=== PATIENT | female | born 1985 | race Caucasian/White ===

== ENCOUNTER 2019-10-22 09:22 | Emergency (ER) | payer BC, SELFPAY ==
--- NOTE | ~2019-10-22 | XR_ITS ---
XR foot RT min 3V DATE: 10/22/2019 10:04 INDICATION: Hyperextension injury. Dorsal and generalized pain. TECHNIQUE: 4 views COMPARISON: None FINDINGS: No fracture or dislocation, periosteal reaction or bone destruction. Joint spaces are prese rved. IMPRESSION: No fracture or dislocation Reviewed, dictated and finalized at location A. IMPRESSION: No fracture or dislocation
--- NOTE | ~2019-10-22 | XR_ITS ---
XR knee RT 3V DATE: 10/22/2019 10:05 INDICATION: Injury, posterior pain TECHNIQUE: 4 views including crosstable lateral COMPARISON: None FINDINGS: No fracture or dislocation or joint effusion. No periosteal reaction or bone destruction. S light periarticular spurring of the patella. Joint spaces are preserved. No radiopaque intra-articula r loose body or chondrocalcinosis. IMPRESSION: Slight degenerative change Reviewed, dictated and finalized at location A. IMPRESSION: Slight degenerative change
--- NOTE | ~2019-10-22 | XR_ITS ---
XR tibia fibula RT 2V DATE: 10/22/2019 10:05 INDICATION: Injury, pain TECHNIQUE: AP and lateral views COMPARISON: None FINDINGS: No fracture or dislocation, periosteal reaction or bone destruction. IMPRESSION: Negative Reviewed, dictated and finalized at location A. IMPRESSION: Negative
--- NOTE | ~2019-10-22 | XR_ITS ---
XR ankle RT min 3V DATE: 10/22/2019 10:05 INDICATION: Hyperextension injury. Dorsal and generalized pain TECHNIQUE: 4 views COMPARISON: None FINDINGS: No fracture or dislocation of the ankle or disruption of the ankle mortise is detected. No periosteal reaction or bone destruction. IMPRESSION: No fracture or dislocation Reviewed, dictated and finalized at location A. IMPRESSION: No fracture or dislocation
[2019-10-22 09:31] VITALS: BP 131/75; PULSE 69; RESP 18; TEMP 36.7; O2SAT 100
--- NOTE | 2019-10-22 10:05 | ED.LOWEXIN ---
HPI - Extremity Injury (Lower) General Chief Complaint: Extremity Injury, Lower Stated Complaint: Foot and Knee pain Time Seen by Provider: 10/22/19 10:07 Source: patient History of Present Illness HPI Narrative: patient presents with right foot , ankle, knee and lower leg pain. no deformity, no open areas , no swelling. patient states she fell between her dresser ant the wall earlier today. hurts to walk on right side. Patient presents with right foot, right ankle and right lower leg contusion. Patient denies any head injuries denies any other injuries. Patient is not take anything for pain or discomfort. MD complaint: knee injury, leg injury, ankle injury and foot injury Injury: Right: knee, ankle and foot Type of Injury: blunt Place: home Severity: mild Severity scale (1-10): 1 Relieving factors: NSAID Exacerbating factors: nothing Context: fall (tripped) Associated symptoms: able to partially bear weight Other symptoms: none Related Data Home Medications Medication Instructions Recorded Confirmed No Home Medications 10/22/19 10/22/19 Allergies Allergy/AdvReac Type Severity Reaction Status Date / Time No Known Allergies Allergy Unknown Verified 10/22/19 09:47 Review of Systems Review of Systems: Narrative: CONSTITUTIONAL: Denies fever, chills, or sweats. EYES: Denies visual changes, redness, or discharge. ENT: Denies rhinorrhea, congestion, sore throat, or otalgia. CARDIOVASCULAR: Denies chest pain, palpitations, or edema. RESPIRATORY: Denies cough or dyspnea. GASTROINTESTINAL: Denies abdominal pain, nausea, vomiting, or diarrhea. GENITOURINARY: Denies dysuria or hematuria. SKIN: Denies rash or itching. MUSCULOSKELETAL: Denies back pain, joint pain, or myalgia. Right ankle lower leg and foot pain NEUROLOGIC: Denies headache, numbness, or weakness. PSYCHIATRIC: Denies anxiety or depression. All systems reviewed & are unremarkable except as noted in HPI and below Constitutional: Constitutional: Reports no additional constitutional complaints Eyes: Eyes: Reports no additional eye complaints ENT: Reports system reviewed and no additional complaints, except as documented Cardiovascular: Cardiovascular: Reports no additional cardiovascular complaints Respiratory: Respiratory: Reports no additional respiratory complaints Gastrointestinal: Gastrointestinal: Reports no additional gastrointestinal complaints Genitourinary: Genitourinary: Reports no additional female genitourinary complaints Musculoskeletal: Comments: right ankle, foot, knee and lower leg pain Integumentary/Breasts: Skin/Breast: Reports system reviewed and no additional complaints, except as docu Neurologic: Reports system reviewed and no additional complaints, except as documented Psychiatric: Psychiatric: Reports no additional psychiatric complaints Endocrine: Endocrine: Reports no additional endocrine complaints PMFSH Past Medical History Medical History (Updated 10/22/19 @ 10:43 by SAM Santiago) Bronchitis Sinusitis Surgical History Surgical History History of cholecystectomy Social History Social History (Updated 08/26/19 @ 15:14 by Nicole Cardona NP) Smoking status: Never smoker Gender identity (if verbalized by the patient): Female Comments At time of signature, agree with nursing past medical, surgical, social and family history. There is no relevant family history pertinent to the presenting complaint Exam Narrative: Exam Narrative: GENERAL: Well-appearing, well-nourished, and in no acute distress. HEAD: Normocephalic, atraumatic. EYES: PERRLA and EOMI. ENT: Nares clear, no rhinorrhea or epistaxis. Mucous membranes moist. NECK: Supple. CHEST: Clear to auscultation. No respiratory distress. HEART: Regular rate and rhythm. No murmur heard. Normal peripheral pulses. ABDOMEN: Soft, nontender, nondistended, normal active bowel sounds. EXTREMI
== END 2019-10-22 10:45 | disposition home or self-care (01) ==
PROVIDERS: Emergency Provider Nurse Practitioner Family; PCP Family Medicine
DX: S80.11XA Contusion of right lower leg, initial encounter (principal); S90.01XA Contusion of right ankle, initial encounter; S90.31XA Contusion of right foot, initial encounter; W19.XXXA Unspecified fall, initial encounter
CPT/HCPCS: 73562; 73590; 73610; 73630; 99214; G0463

== ENCOUNTER 2022-07-11 08:10 | Emergency (ER) | payer BC, SELFPAY ==
--- NOTE | ~2022-07-11 | XR_ITS ---
EXAMINATION: XR foot LT min 3V DATE: 07/11/2022 08:31 INDICATION: Left foot injury. TECHNIQUE: 4 views of left foot were obtained. COMPARISON: Left foot radiographs 02/11/2018 FINDINGS: Bone alignment is normal. No fracture. There is mild osteoarthritis of first metatarsophala ngeal joint, talonavicular joint, and some of the interphalangeal joints. There is an enthesophyte at plantar aspect of calcaneal tuberosity. IMPRESSION: 1. Mild polyarticular osteoarthritis. Reviewed, dictated and finalized at location A. [employer]
[2022-07-11 08:14] VITALS: BP 107/65; PULSE 56; RESP 20; TEMP 36.6; O2SAT 100
[2022-07-11 08:23] VITALS: BP 107/65; PULSE 56; RESP 20; TEMP 36.6; O2SAT 100
--- NOTE | 2022-07-11 08:30 | ED.LOWEXIN ---
HPI - Extremity Injury (Lower) General Chief Complaint: Extremity Injury, Lower Stated Complaint: Left Foot Injury Time Seen by Provider: 07/11/22 08:30 Source: patient and RN notes reviewed Mode of arrival: ambulatory Limitations: no limitations History of Present Illness HPI Narrative: 36-year-old female presents concern for injury to her left foot. Reports last night any frozen trunk of hamburger fell from the freezer on to her flight. She reports pain in the 1st toe that radiates up to the dorsal foot. She denies any open skin. She reports pain with walking. MD complaint: foot injury Related Data Home Medications Medication Instructions Recorded Confirmed No Home Medications 10/22/19 07/11/22 Allergies Allergy/AdvReac Type Severity Reaction Status Date / Time No Known Allergies Allergy Unknown Verified 07/11/22 08:21 Review of Systems Review of Systems: CONSTITUTIONAL: Denies malaise, chills, sweats, or fever. SKIN: Denies rash or itching, open skin, laceration, abrasion, redness, warmth MUSCULOSKELETAL: Reports left foot pain, swelling NEUROLOGIC: Denies numbness, weakness All systems reviewed & are unremarkable except as noted in HPI and below PMFSH Past Medical History Medical History (Updated 07/11/22 @ 08:42 by Adilene Story NP) Bronchitis Sinusitis Surgical History Surgical History History of cholecystectomy Social History Social History (Updated 08/26/19 @ 15:14 by Nicole Cardona NP) Smoking status: Never smoker Gender identity (if verbalized by the patient): Female Comments At time of signature, agree with nursing past medical, surgical, social and family history. There is no relevant family history pertinent to the presenting complaint Exam Narrative: GENERAL: Well-appearing, well-nourished, and in no acute distress. HEAD: Normocephalic, atraumatic. EYES: PERRLA, conjunctivae clear NECK: Supple. CHEST: Speaks in full sentences. No respiratory distress. HEART: Regular rate and rhythm. Normal and equal peripheral pulses. EXTREMITIES: Left foot and digits have grossly normal strength and sensation, grossly normal range of motion. Very mild 1st digit in dorsal edema she without erythema or ecchymosis. 5/5 strength with including digit flexion and extension. Normal sensation with sensitivity to light touch and pain. First digit tenderness. No open wounds, no skin tenting, no devitalized tissue or atrophy, no trophic changes, no obvious deformity, alignment normal, nearby joints and structures intact. Distal pulses palpable and equal bilaterally, skin warm, dry, pink. Capillary refill less than 3 seconds. SKIN: Warm, dry, no rash. Mild subungual hematoma noted the 1st digit of the left foot NEURO: Alert and oriented x3. PSYCH: Normal mood and affect Course Course Emergency Course: Patient is aware of diagnosis, understands and agrees to treatment plan. Anticipatory guidance given. Patient agrees to follow-up as directed and is aware of reasons to seek care at the emergency department. Portions of this record may have been created with voice recognition software Level of Care: Express Care Visit Vital Signs Vital signs: Vital Signs Temperature 97.8 F 07/11/22 08:14 Pulse Rate 56 L 07/11/22 08:14 Respiratory Rate 20 07/11/22 08:14 Blood Pressure 107/65 07/11/22 08:14 Pulse Oximetry 100 07/11/22 08:14 Oxygen Delivery Room Air 07/11/22 08:14 Temperature 97.8 F 07/11/22 08:23 Pulse Rate 56 L 07/11/22 08:23 Respiratory Rate 20 07/11/22 08:23 Blood Pressure 107/65 07/11/22 08:23 Pulse Oximetry 100 07/11/22 08:23 Oxygen Delivery Room Air 07/11/22 08:23 Reviewed. Procedures Nail Trephination Nail Trephination #1: Nail Trephination Date: 07/11/22 Nail Trephination Time: 08:39 Time out: Yes Location (toes): left Sterile prep: betadine
== END 2022-07-11 08:55 | disposition home or self-care (01) ==
PROVIDERS: Emergency Provider Nurse Practitioner; PCP Family Medicine
DX: S90.212A Contusion of left great toe with damage to nail, initial encounter (principal); S90.32XA Contusion of left foot, initial encounter; W20.8XXA Other cause of strike by thrown, projected or falling object, initial encounter
CPT/HCPCS: 11740; 73630; 99213; G0463

== ENCOUNTER 2023-04-19 08:01 | Emergency (ER) | payer BC, SELFPAY ==
[2023-04-19 08:07] VITALS: BP 113/60; PULSE 51; RESP 16; TEMP 36.6; O2SAT 100
--- NOTE | 2023-04-19 08:09 | ED.URI ---
HPI - URI/Sore Throat General Chief Complaint: Upper Respiratory Infection Stated Complaint: Sore Throat/Ear Pain/Cough Source: patient and RN notes reviewed History of Present Illness HPI Narrative: 37 yo F presents to urgent care with complaints of sore throat, bilateral ear pain, HORN, cough, chest pain with deep breathing, and congestion. Pt states she woke up this morning soaking wet with sweat. Pt's symptoms have been going on for 2 days. Denies any SOB, V/D, or abdominal pain. Pt has taken Excedrin at home with good relief. Pt has also taken 4 covid tests at home that were negative. Related Data Allergies Allergy/AdvReac Type Severity Reaction Status Date / Time No Known Allergies Allergy Unknown Verified 07/11/22 08:21 Review of Systems Review of Systems: Pertinent positives and pertinent negatives per HPI. [facility] Past Medical History Medical History (Updated 04/19/23 @ 08:18 by Milagros Kyle, KACY) Bronchitis Sinusitis Surgical History Surgical History History of cholecystectomy Social History Social History (Updated 08/26/19 @ 15:14 by Nicole Cardona NP) Smoking status: Never smoker Living arrangements: with family Gender identity (if verbalized by the patient): Female Comments At the time of my signature, I reviewed and agree with the nursing past medical, surgical, social, and family history. There is no relevant family history pertinent to the patient complaint. Exam Narrative: GENERAL: This is a well-nourished, well-developed patient, in no apparent distress. HEAD: normocephalic, atraumatic. EYES: Sclera clear/white. Vision is grossly intact. EARS: External ears normal, auditory canals clear and without drainage, TMs normal without perforation. Hearing grossly intact. NOSE: External nose normal with no obvious nasal discharge, nares without redness, no rhinorrhea. THROAT: Mucous membranes moist, posterior pharynx clear. NECK: Neck supple, non-tender without lymphadenopathy, masses or thyromegaly. CARDIOVASCULAR: Regular rate and rhythm without murmurs, gallops, or rubs. RESPIRATORY: Clear to auscultation. Breath sounds equal bilaterally. No wheezes, rales, or rhonchi. SKIN: warm, intact with no suspicious lesions or rash, good texture and turgor. NEURO: awake, alert, and oriented to person, place and time. There were no obvious focal neurologic abnormalities. Course Course Level of Care: Express Care Visit Vital Signs Vital signs: Vital Signs Temperature 98 F 04/19/23 08:07 Pulse Rate 51 L 04/19/23 08:07 Respiratory Rate 16 04/19/23 08:07 Blood Pressure 113/60 04/19/23 08:07 Pulse Oximetry 100 04/19/23 08:07 Oxygen Delivery Room Air 04/19/23 08:07 Temperature 98 F 04/19/23 08:12 Pulse Rate 51 L 04/19/23 08:12 Respiratory Rate 16 04/19/23 08:12 Blood Pressure 113/60 04/19/23 08:12 Pulse Oximetry 100 04/19/23 08:12 Oxygen Delivery Room Air 04/19/23 08:12 reviewed MDM - URI/Sore Throat MDM Narrative Medical decision making narrative: Viral illness may last between 7-21 days; antibiotics do not cure viral illness and are NOT recommended at this time. Also, recommend symptomatic treatment includes: rest, fluids, and increase humidity of the air at home. Recommend Acetaminophen as directed on the bottle to reduce fever, pain, headache. Please schedule a follow-up visit with your personal physician for further evaluation and treatment within 3-5days. If your symptoms persist, change or worsen significantly before you can contact your personal physician then please, without delay, go to the emergency department for further evaluation. Rapid strep is negative in the office; however we will send to the lab for confirmation; there is a small percentage chance that it can come back positive; if it is, we will call you in 2-3days; and your prescription will be call in to your pharm
[2023-04-19 08:12] VITALS: BP 113/60; PULSE 51; RESP 16; TEMP 36.6; O2SAT 100
== END 2023-04-19 08:40 | disposition home or self-care (01) ==
PROVIDERS: Emergency Provider Nurse Practitioner Family; PCP Family Medicine
DX: B34.9 Viral infection, unspecified (principal)
CPT/HCPCS: 87081; 87880; 99213; G0463

== ENCOUNTER 2023-07-06 15:46 | Emergency (ER) | payer BC, SELFPAY ==
[2023-07-06 15:52] VITALS: BP 107/56; PULSE 56; RESP 14; TEMP 36.6; O2SAT 99
--- NOTE | 2023-07-06 16:21 | ED.GENADULT ---
HPI - General Adult General Chief complaint: Upper Respiratory Infection Stated complaint: sore throat Time Seen by Provider: 07/06/23 16:21 Source: patient, RN notes reviewed and old records reviewed Mode of arrival: ambulatory Limitations: no limitations History of Present Illness HPI narrative: 37-year-old female presents to [facility] with complaints of sore throat, ear pain since Sunday with cough and expectoration of greenish tinged mucous. Patient reports that she had to call off work on Sunday due to illness. 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 Patient reports no known fevers chills or sweats or any body aches or headache pain. MD complaint: Sore throat Onset (ago): day(s) (4) Severity scale (1-10): 6 Quality: aching and dull Treatments prior to arrival: other (cough drops) Related Data Allergies Allergy/AdvReac Type Severity Reaction Status Date / Time No Known Allergies Allergy Unknown Verified 07/06/23 16:09 Review of Systems Review of Systems: CONSTITUTIONAL: reports malaise, no chills, sweats, or fever. EYES: Denies visual changes, redness, or discharge. ENT: Reports rhinorrhea, congestion, sinus pain, otalgia and sore throat. CARDIOVASCULAR: Denies chest pain, palpitations, or edema. RESPIRATORY: Reports cough.? Denies dyspnea. GASTROINTESTINAL: Denies abdominal pain, nausea, vomiting, diarrhea SKIN: Denies rash or itching. MUSCULOSKELETAL: Denies myalgia. NEUROLOGIC: Denies headache. All systems reviewed & are unremarkable except as noted in HPI and below PMFSH Past Medical History Medical History (Updated 07/07/23 @ 22:07 by Nicole Cardona NP) Bronchitis Sinusitis Surgical History Surgical History (Updated 07/07/23 @ 22:07 by Nicole Cardona NP) H/O gastric sleeve History of cholecystectomy Social History Social History (Updated 08/26/19 @ 15:14 by Nicole Cardona NP) Smoking status: Never smoker Living arrangements: with family Gender identity (if verbalized by the patient): Female Comments At time of signature, agree with nursing past medical, surgical, social and family history. There is no relevant family history pertinent to the presenting complaint Exam Narrative: GENERAL: Well-appearing, well-nourished, and in no acute distress. HEAD: Normocephalic EYES: PERRLA, conjunctivae clear ENT: Nares clear, turbinates edematous and erythematous, clear discharge. Mucous membranes moist. TM pearly alston with dull light reflex bilaterally; no tragal tenderness. Oropharynx erythematous without lesions. Tonsils enlarged and without exudate, no drooling, no hoarseness, no trismus, uvula midline. NECK: Supple. No lymphadenopathy CHEST: Clear to auscultation, breath sounds equal. No wheezing, rhonchi, rales, or stridor. No respiratory distress, speaks in full sentences.cough productive, SAO2 99% on room air HEART: Regular rate and rhythm. No murmur heard. SKIN: Warm, dry, no rash. NEURO: Alert and oriented x3. PSYCH: Normal mood and affect Course Course Emergency Course: Patient is aware of diagnosis, understands and agrees to treatment plan.? Anticipatory guidance given.? Patient agrees to follow-up as directed and is aware of reasons to seek care at the emergency department. Portions of this record may have been created with voice recognition software Level of Care: Express Care Visit Vital Signs Vital signs: Vital Signs Temperature 36.6 C 07/06/23 15:52 Pulse Rate 56 L 07/06/23 15:52 Respiratory Rate 14 07/06/23 15:52 Blood Pressure 107/56 L 07/06/23 15:52 Pulse Oximetry 99 07/06/23 15:52 Oxygen Delivery Room Air 07/06/23 15:52 Temperature 36.6 C 07/06/23 15:52 Pulse Rate 56 L 07/06/23 15:52 Respiratory Rate 14 07/06/23 15:52 Blood Pressure 107/56 L 07/06/23 15:52 Pulse Oximetry 99 07/06/23 15:52 Oxygen Delivery Room Air 07/06/23 15:52
== END 2023-07-06 16:45 | disposition home or self-care (01) ==
PROVIDERS: Emergency Provider Registered Nurse; PCP Family Medicine
DX: J06.9 Acute upper respiratory infection, unspecified (principal); J02.9 Acute pharyngitis, unspecified; Z98.84 Bariatric surgery status
CPT/HCPCS: 87081; 87880; 99213; G0463

== ENCOUNTER 2023-11-13 07:50 | Emergency (ER) | payer BC, SELFPAY ==
--- NOTE | ~2023-11-13 | CT_ITS ---
Non-contrast CT scan of the Abdomen and Pelvis Clinical indication: Abdominal pain Technique: 2.5 mm axial scans were obtained through the abdomen and pelvis without intravenous or or al contrast. Dose reduction technique was used on this scan by utilizing automated exposure control a nd iterative reconstruction technique. The dose-length product (DLP) was 958.45 mGy-cm. Findings: Images through the lung bases reveal no abnormalities. There is no evidence of renal or ureteral calculi. The kidneys and the ureters are nondilated. The liver, spleen, pancreas, and adrenals appear normal. Cholecystectomy clips are present. There is no aortic aneurysm. There is no evidence of bowel obstruction. Evidence of probable prior bariatric surgery. Normal appen esthela. Images through the pelvis were performed. There is no evidence of ascites or lymphadenopathy. Urinary bladder unremarkable. No pelvic mass evident. Bilateral L5 pars interarticularis defects are present , with minimal grade 1 anterolisthesis of L5 over S1. Impression: No acute abnormality. Bilateral L5 pars articularis defects, with minimal grade 1 anterolisthesis of L5 over S1. Reviewed, dictated and finalized at [facility]. Impression: No acute abnormality. Bilateral L5 pars articularis defects, with minimal grade 1 anterolisthesis of L5 over S1.
[2023-11-13 07:57] VITALS: BP 112/63; PULSE 58; RESP 16; TEMP 36.6; O2SAT 99
--- NOTE | 2023-11-13 08:07 | ED.ABDPAIN ---
HPI - Abdominal Pain General Chief Complaint: Abdominal Pain Stated Complaint: abd pain x 1 week Time Seen by Provider: 11/13/23 08:02 Source: patient and family Mode of arrival: ambulatory Limitations: no limitations History of Present Illness HPI narrative: 38 years old white female came to the emergency room by private car from home complaining of right mid abdominal pain started 6 days ago associated with nausea and watery diarrhea up to 3 times a day. She denies any fever, chills, vomiting. Three days ago patient noted that her stool is black. She denies radiation of pain, history of gastric sleeve 2020, cholecystectomy, last menstrual period 7 days ago. Last episode of diarrhea was yesterday afternoon. Related Data Allergies Allergy/AdvReac Type Severity Reaction Status Date / Time No Known Allergies Allergy Unknown Verified 11/13/23 08:01 Review of Systems Review of Systems: All systems reviewed & are unremarkable except as noted in HPI and below PMFSH Past Medical History Medical History Bronchitis Sinusitis Surgical History Surgical History H/O gastric sleeve History of cholecystectomy Social History Social History Smoking status: Never smoker Living arrangements: with family Gender identity (if verbalized by the patient): Female Exam Narrative: General appearance: Well-developed, well-nourished Skin: Normal color Head: Normocephalic, nontraumatic Eyes: Clear conjunctiva ENT: Oropharynx normal, ears normal, nose normal Neck: Supple, nontender Chest and respiratory: Airway patent, no respiratory distress, no accessory muscle use Heart: Regular rate/rhythm Abdomen: Soft, nontender, no organomegaly, quiet bowel sounds Vascular: Normal peripheral pulses, normal capillary refill. Musculoskeletal: Normal range of motion, nontender back Neurologic: Alert and oriented ?3, ELECT[employer]MENT INST[employer]ER is normal as tested, no gross motor deficit Course Vital Signs Vital signs: Vital Signs Temperature 36.6 C 11/13/23 07:57 Pulse Rate 58 L 11/13/23 07:57 Respiratory Rate 16 11/13/23 07:57 Blood Pressure 112/63 11/13/23 07:57 Pulse Oximetry 99 11/13/23 07:57 Temperature 36.6 C 11/13/23 07:57 Pulse Rate 58 L 11/13/23 07:57 Respiratory Rate 16 11/13/23 07:57 Blood Pressure 112/63 11/13/23 07:57 Pulse Oximetry 99 11/13/23 07:57 MDM - Abdominal Pain MDM Narrative Medical decision making narrative: Patient came with a right mid abdominal pain and the diarrhea up to 3 times a day for the last 6 days Differential diagnosis viral gastroenteritis, dehydration, electrolyte imbalance, colitis, Blood workup today showed potassium 3.3, CT abdomen and pelvis with IV contrast showed no significant abnormalities. In the ED patient received 2 L of normal saline, 4 mg of morphine, 4 mg of Zofran, 40 mEq of potassium chloride p.o. with significant improvement Last episode of diarrhea yesterday afternoon. Patient unable to provide a stool sample in the ED prior to discharge the pt was discharged to home.the pt,s condition upon discharge was fair,education was provided to the pt in reference to the final impression,discharge study results,treatment,prognosis and need for follow up . Differential Diagnosis Differential diagnosis: Likely other (As above) Medical Records Attestation: I reviewed the patient's medical records. Lab Data Attestation: I reviewed the patient's lab results. 11/13/23 08:13 11/13/23 08:13 Labs: Lab Results 0
[2023-11-13] MEDS: SODIUM CHLORIDE 0.9% IV 2,000 ML 999 ML IV CONT (08:22)
[2023-11-13 08:23] LABS: Basophils Percent Auto 0.5 % (0.2-1.2); Eosinophils Absolute Auto 0.2 K/mm3 (0-0.3); Eosinophils Percent Auto 3.3 % (0-4.4); Hematocrit 39.4 % (37.0-47.0); Hemoglobin 12.4 g/dL (12.0-15.0); Immature Granulocyte Absolute 0.02 K/mm3 (0.00-0.031); Immature Granulocyte Percent A 0.3 % (0-0.5); Lymphocytes Absolute Auto 1.48 K/mm3 (0.9-3.2); Lymphocytes Percent Auto 25.6 % (18.3-44.2); Mean Corpuscular HGB Conc 31.5 g/dl (32-36); Mean Corpuscular Volume 85.8 fl (80-100); Mean Platelet Volume 9.3 fl (7.4-10.4); Monocytes Absolute Auto 0.6 K/mm3 (0.1-0.6); Monocytes Percent Auto 9.9 % (2.6-8.5); Neutrophils Absolute Auto 3.5 K/mm3 (1.3-6.7); Neutrophils Percent Auto 60.4 % (45.5-73.1); Platelet Count Result 404 k/mm3 (150-375); Red Blood Count 4.59 M/mm3 (4.2-5.4); Red Cell Distribution Width 14.2 % (11.5-14.5); White Blood Count 5.8 K/mm3 (4.5-10.0)
[2023-11-13] MEDS: MORPHINE SULFATE (*CRX) 4 MG/ML INJ IV PUSH (08:23)
[2023-11-13] MEDS: ONDANSETRON INJ 4 MG/2 ML VIAL IV PUSH (08:23)
[2023-11-13 08:38] LABS: Alanine Aminotransferase 17 U/L (6-35); Albumin Level 4.1 g/dL (3.5-5.1); Alkaline Phosphatase 75 U/L (38-126); Anion Gap 4 mmol/L (4-12); Aspartate Amino Transferase 18 U/L (14-36); Bilirubin,Total 0.6 mg/dL (0.2-1.3); Blood Urea Nitrogen 14 mg/dL (7-17); Carbon Dioxide 30 mmol/L (22-30); Chloride 103 mmol/L (98-107); Estimated CRCL calculation 109 ml/min; Estimated Glomerular Filt Rate > 60; Glucose 91 mg/dL (65-110); Lipase 85 U/L (23-300); Potassium 3.3 mmol/L (3.4-5.0); Sodium 137 mmol/L (137-145)
[2023-11-13 08:47] LABS: Appearance Urine Cloudy (Clear); Bacteria Urine 4+ /hpf; Bilirubin Urine 1+ (Negative); Blood Urine Negative (Negative); Calcium Oxalate Crystals Urine Present /hpf; Color Urine Dark Yellow (Yellow); Glucose Urine UA Negative (Negative); Ketones Urine 1+ mg/dL (Negative); Leukocyte Esterase Ur Trace LEU/UL (Negative); Mucus Urine Present /lpf; Nitrate Urine Negative (Negative); Protein Urine Trace mg/dL (Negative); Squamous Epithelial Cell Urine Moderate /hpf (Few); pH Urine 5.5 (5.0-9.0)
[2023-11-13 08:48] LABS: Non Pathogenic Casts Not Present; Specific Grav Ur 1.038 (1.001-1.035)
[2023-11-13 08:53] LABS: Add Urine Microscopic? YES
[2023-11-13] MEDS: POTASSIUM CHLORIDE 20 MEQ ER TABLET 40 MEQ PO (09:59)
== END 2023-11-13 10:15 | disposition home or self-care (01) ==
PROVIDERS: Emergency Provider Emergency Medicine; PCP Family Medicine
DX: R10.9 Unspecified abdominal pain (principal); R19.7 Diarrhea, unspecified; E87.6 Hypokalemia
CPT/HCPCS: 36415; 74176; 80053; 81001; 81025; 83690; 85025; 87086; 87088; 96361; 96374; 96375; 99284; A9270; J2270; J2405; J7030

== ENCOUNTER 2024-03-14 10:37 | Emergency (ER) | payer BC, SELFPAY ==
--- NOTE | ~2024-03-14 | XR_ITS ---
EXAMINATION: XR wrist RT min 3V DATE: 03/14/2024 11:16 INDICATION: Right wrist pain. TECHNIQUE: 4 views of right wrist were obtained. COMPARISON: None. FINDINGS: Bone alignment is normal. No fracture. Joint spaces are normal. IMPRESSION: 1. No fracture. Reviewed, dictated and finalized at location A. IMPRESSION: 1. No fracture.
[2024-03-14 10:43] VITALS: BP 101/62; PULSE 49; RESP 16; TEMP 36.8; O2SAT 100
--- NOTE | 2024-03-14 10:58 | ED.GENADULT ---
HPI - General Adult General Chief complaint: Extremity Injury, Upper Stated complaint: Right Wrist Injury Time Seen by Provider: 03/14/24 10:55 Source: patient, RN notes reviewed and old records reviewed Mode of arrival: ambulatory Limitations: no limitations History of Present Illness HPI narrative: 38 year old female who presents to [facility] care with complaints of pain to her right thumb base to her right wrist for the past 2 weeks with no known injury. Patient reports that she has janessa diagnosed with tendonitis to her wrist in the past and had steroid injection in her wrist which she reports didn't seem to help. Patient reports that dog does pull on leash when she walks the dog. Patient reports no tingling or numbness to her right hand with strong radial pulse to right wrist note and brisk capillary refill of nail beds. MD complaint: right wrist pain base of thumb to wrist Onset (ago): week(s) (2) Location: right and upper extremity (wrist) Severity scale (1-10): 7 Quality: burning and aching Treatments prior to arrival: cold therapy and splint Related Data Allergies Allergy/AdvReac Type Severity Reaction Status Date / Time No Known Allergies Allergy Unknown Verified 03/14/24 10:43 Review of Systems Review of Systems: CONSTITUTIONAL: Denies fever, chills, or sweats. EYES: Denies visual changes, redness, or discharge. ENT: Denies rhinorrhea, congestion, sore throat, or otalgia. CARDIOVASCULAR: Denies chest pain, palpitations, or edema. RESPIRATORY: Denies cough or dyspnea. GASTROINTESTINAL: Denies abdominal pain, nausea, vomiting, or diarrhea. GENITOURINARY: Denies dysuria or hematuria. SKIN: Denies rash or itching. MUSCULOSKELETAL: Denies back pain,pain to the right base of thumb to right wrist for the past 2 weeks, or myalgia. NEUROLOGIC: Denies headache, numbness, or weakness. PSYCHIATRIC: Denies anxiety or depression. All systems reviewed & are unremarkable except as noted in HPI and below PMFSH Past Medical History Medical History (Updated 03/14/24 @ 12:22 by Nicole Cardona NP) Bronchitis Sinusitis Tendonitis Surgical History Surgical History H/O gastric sleeve History of cholecystectomy Social History Social History Smoking status: Never smoker Living arrangements: with family Gender identity (if verbalized by the patient): Female Comments At time of signature, agree with nursing past medical, surgical, social and family history. There is no relevant family history pertinent to the presenting complaint Exam Narrative: GENERAL: Well-appearing, well-nourished, and in no acute distress. HEAD: Normocephalic, atraumatic. EYES: PERRLA and EOMI. ENT: Nares clear, no rhinorrhea or epistaxis. Mucous membranes moist. NECK: Supple.no lymphadenopathy CHEST: Clear to auscultation. No respiratory distress.SAO2 100% on room air HEART: Regular rate and rhythm. No murmur heard. Normal peripheral pulses. ABDOMEN: Soft, nontender, nondistended, normal active bowel sounds. EXTREMITIES: Normal range of motion. No edema.Reports pain to the base of her right thumb into the radial aspect of her right wrist. Patient has full mobility of her right wrist but with some discomfort. Patient has been wearing a soft brace and also has been using a firmer brace to her right wrist. SKIN: Warm, dry, no rash. NEURO: No focal deficits. Alert and oriented x3. Course Course Emergency Course: Patient is aware of diagnosis, understands and agrees to treatment plan.? Anticipatory guidance given.? Patient agrees to follow-up as directed and is aware of reasons to seek care at the emergency department. Portions of this record may have been created with voice recognition software Level of Care: Express Care Visit Vital Signs Vital signs: Vital Signs Temperature 36.8 C 03/14/24 10:43 Pulse Rate 49 L 03/14/24
== END 2024-03-14 11:41 | disposition home or self-care (01) ==
PROVIDERS: Emergency Provider Registered Nurse; PCP Family Medicine
DX: M77.8 Other enthesopathies, not elsewhere classified (principal); Z98.84 Bariatric surgery status
CPT/HCPCS: 73110; 99213; G0463

== ENCOUNTER 2025-03-03 08:17 | Outpatient (CLI) | payer BC, SELFPAY ==
--- OUTSIDE RECORDS SUMMARY | 2025-03-03 08:20 | XMS_ITS | Clinical Summary ---
Author Organization [facility] Building [address] Address [address] [place] [address] Care Team Providers Care Director Of Collections And Archives Name Role Phone Hola Garcia MD Primary Care Provider [phone] Cesario Tinsley MD Unavailable [phone] Allergies Active Allergy Reactions Criticality Noted Date Comments Nsaids (Non-Steroidal Anti-Inflammatory Drug) Other (See comments) Low 12/27/2023 Unable to take due to previous gastric sleeve surgery Medications cyanocobalamin, vitamin B-12, 500 mcg tablet,disintegrati ngIndications:Preve ntion of Vitamin B12 Deficiency Place 500 mcg under the tongue daily 30 each 5 1 Active omeprazole (PriLOSEC) 20 mg capsule Take 1 capsule (20 mg total) by mouth as needed Active cholecalciferol (Vitamin D3) 1,000 unit capsule Take 1 capsule (1,000 Units total) by mouth daily Active magnesium gluconate 200 mg tabletIndications:h ypomagnesemia 1 tablet (200 mg total) Active ondansetron ODT (ZOFRAN-ODT) 4 mg disintegrating tabletIndications:C lass 2 obesity due to excess calories without serious comorbidity with body mass index (BMI) of 38.0 to 38.9 in adult Take 1 tablet (4 mg total) by mouth every 8 (eight) hours as needed for nausea 20 tablet 6 5 Active tirzepatide, weight loss, (Zepbound) 5 mg/0.5 mL pen injectorIndications :Weight Loss Management for Obese Patient (BMI >= 30) Inject 0.5 mL (5 mg total) under the skin every 7 days 2 mL 2 5 Active Active Problems Problem Noted Date Diagnosed Date De Quervain's tenosynovitis 07/03/2024 Pre-operative clearance 07/01/2024 Assessment & Plan (07/01/2024 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 Lewis. Planning for right 1st dorsal compartment release on 07/28. Denies any history of complication with anesthesia. Denies COPD/asthma, CLIFFORD, DVT/PE. Unable to take NSAIDs secondary to bariatric surgery status. Past medical history significant for gastric sleeve, endometrial ablation and GERD. Nonsmoker. Labs ordered today. EKG completed in office. Class 2 obesity due to exces s calories without serious comorbidity with body mass index (BMI) of 35.0 to 35.9 in adult 07/01/2024 Vagina bleeding 11/01/2023 Annual physical exam 10/25/2023 Assessment & Plan (10/30/2024 2:33 PM CDT): Visit preventive in nature. We reviewed medications, chronic conditions, risk factors, lifestyle recommendations. Reviewed immunization recommendations. Follow-up in 6 months for chronic conditions and 1 year for annual wellness. Assessment & Plan (10/25/2023 4:43 PM CDT): Reviewed lifestyle recommendations today reviewed screening recommendations. Will order screening labs today. Follow-up in 1 year for annual wellness and sooner for any concerns. Acute strain of neck muscle 10/25/2023 Assessment & Plan (10/25/2023 4:44 PM CDT): Neurovascularly intact. Will initiate Flexeril p.r.n.. Reviewed stretching exercises. Recommend ice, heat. Will monitor response. S/P gastric sleeve procedure 10/25/2023 Assessment & Plan (10/30/2024 2:35 PM CDT): Encourage vitamin supplements. Continues following with bariatric specialist. Assessment & Plan (10/25/2023 4:44 PM CDT): Has lost significant amount of weight. Symptoms likely consistent with hypoglycemic episodes. Encouraged to eat small frequent meals. Also recommend obtaining glucometer to check blood sugar at those times. We reviewed red flags. Will monitor response. Pharyngitis 08/02/2023 Upper respiratory infection 08/02/2023 Viral infection 08/02/2023 At high risk for breast cancer 03/13/2023 History of sleeve gastrectomy 01/04/2023 Chronic constipation 11/15/2022 Rectal pain 11/15/2022 Closed fracture of nasal bones 11/07/2022 Facial laceration 11/07/2022 Right corneal abrasion 11/07/2022 Nutritional counseling 01/13/2021 Anxiety 01/13/2021 Assessment & Plan (10/30/2024 2:34 PM CDT): See plan as above. Major depressive disorder, r ecurrent episode, in full remission 12/15/2020 Assessment & Plan (10/30/2024 2:33 PM CDT): Currently stable. Red flags reviewed. Will place referral to specialist. Will continue to follow. Class 3 severe obesity due t o excess calories without serious comorbidity with body mass index (BMI) of 50.0 to 59.9 in adult 03/20/2018 Assessment & Plan (03/20/2018 11:12 AM CDT): Obesity is unchanged. Discussed the patient's BMI. The BMI is above average; BMI management plan is completed. General weight loss/lifestyle modification strategies discussed (elicit support from others; identify saboteurs; non-food rewards, etc). Family history of malignant neoplasm of breast 0 03/20/2018 Assessment & Plan (10/25/2023 4:43 PM CDT): Follows closely with breast specialist. Having MRI q.6 months. Was told by specialist she has 20% chance of developing breast cancer. Family history of multiple myeloma 03/20/2018 Resolved Problems Problem Noted Date Diagnosed Date Resolved Date Morbid obesity 12/14/2020 01/04/2023 Overview (12/14/2020): Added automatically from request for surgery [id number] Encounters Date Type Department Care Team Description 01/23/2025 3:30 PM CDT Office Visit [facility] Minimally Invasive Surgery [address] [place] [address] Medical Office Building [address] [place] [id number] Uma Vieyra NP Obesity, Class II, BMI 35-39.9 (Primary Dx); Morbid obesity (HCC); Weight loss counseling, encounter for; Class 2 obesity due to excess calories without serious comorbidity with body mass index (BMI) of 38.0 to 38.9 in adult; H/O gastric sleeve; Intestinal malabsorption, unspecified type from Last 3 Months Immunizations Immunization Administration Dates Next Due Influenza, Quadrivalent, Spl it, Preservative Free, Intramuscular 05/14/2019,06/11/2018 Influenza, Unspecified 07/01/2024(Deferr ed: Patient Refused),10/25/2023(Deferred: Patient Refused),05/13/2023(Deferred: Patient Refused),09/27/2022(Deferred: Patient Refused),05/13/2022(Deferred: Patient Refused),04/13/2022(Deferred: Patient Refused),06/02/2021(Deferred: Patient Refused),2020(Deferred: Patient Refused),05/17/2020(Deferred: Patient Refused) Pfizer SARS-CoV-2 Monovalent Vaccination (12+ Yrs) PURPLE 02/07/2021,01/17/2021 Tdap 11/07/2022,03/20/2018,09/12/2014 Surgical History Surgery Date Site/Laterality Comments COLONOSCOPY 2012 - 08/12/2013 LAPAROSCOPIC CHOLECYSTECTOMY 2009 - 08/12/2010 BARIATRIC SURGERY 02/23/2021 COLONOSCOPY 2022 - 08/12/2023 ENDOMETRIAL ABLATION 12/27/2023 uterine ablation Medical History Medical History Date Comments BRCA2 negative BRCA1 negative Asthma Not sure Morbid obesity (HCC) 11/04/2020 Anxiety and depression Family History Medical History Relation Name Comments Breast cancer Mother Mother Cancer Mother Mother Learning disabilities Mother Mother Multiple myeloma Mother Mother Breast cancer Mother's Sister abad Diabetes Other 2 Family history of Diabetes mellitus; Cancer Other 3 Family history of Cancer, unknown; Heart disease Other 4 Family history of Heart problems; Heart disease Paternal Grandmother Juanita Zhong Anesthesia problems Neg Hx Endometrial cancer Neg Hx Ovarian cancer Neg Hx Thyroid cancer Neg Hx Relation Name Status Comments Mother Mother Mother's Sister abad Alive Other 1 Other 2 Other 3 Other 4 Paternal Grandmother Juanita Zhong Social History Tobacco Use Types Packs/Day Years Used Date Smoking Tobacco: Never Smokeless Tobacco: Never Tobacco Cessation:Counseling Given: Not Answered AUDIT-C Answer Date Recorded Q1: How often do you have a drink containing alcohol? Never 11/14/2024 Q2: How many drinks containi ng alcohol do you have on a typical day when you are drinking? Patient does not drink Q3: How often do you have si x or more drinks on one occasion? Never 11/14/2024 PHQ-2 Answer Date Recorded PHQ-2 Total Score (If total score is 3 or more points, staff should administer the PHQ-9) 3 10/27/2024 PHQ-9 Answer Date Recorded PHQ-9 Total Score 18 10/27/2024 Personal Safety Answer Date Recorded Have you ever been in or are you currently in a harmful physical or emotional relationship or is someone making you feel afraid or unsafe? 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 Gender Identity Female 01/26/2020 4:31 PM CDT Sexual Orientation Straight 01/26/2020 4: 31 PM CDT Obstetrics History Para Term AB IAB SAB Ectopic Multiple Livin g Live Births 3 3 3 Date Outcome GA Total Labor Labor/2nd/3rd Weight Sex Type Anes PTL Dolly A1 A5 Name Clin Term Term Term Last Filed Vital Signs Vital Sign Reading Time Taken Comments Blood Pressure 114/76 01/23/2025 3:00 PM CDT Pulse 62 01/23/2025 3:00 PM CDT Temperature 36.2 C (97.2 F) 10/27/2024 3:54 PM CDT Respiratory Rate 20 10/27/2024 3:54 PM CDT Oxygen Saturation 98% 01/23/2025 3:00 PM CDT Inhaled Oxygen Concentration - - Weight 95.7 kg (211 lb) 01/23/2025 3:00 PM CDT Height 165.1 cm (5' 5) 01/23/2025 3:00 PM CDT Body Mass Index 35.11 01/23/2025 3:00 PM CDT Plan of Treatment Health Maintenance Due Date Last Done Comments Hepatitis C Screening 1987 Hepatitis B Screening 2005 Cervical Cancer Screening 10/11/2017 10/11/2016 Covid-19 Vaccine ( season) 2024 02/07/2021, 01/17/2021 Breast Cancer Screening-Mammogram 03/03/2025 03/03/2024, 03/02/2023, 03/01/2023, Additional history exists Influenza Vaccine (#1) 2025 05/14/2019, 2017 Depression Screening 10/27/2025 10/27/2024, 10/27/2024, 07/01/2024, Additional history exists Regular Well Visit/Exam 18-64 10/27/2025 10/27/2024, 10/25/2023, 06/02/2021, Additional history exists DTaP/Tdap/Td Vaccine (4 - Td or Tdap) 11/07/2032 11/07/2022, 03/20/2018, 09/12/2014 HPV Vaccines Aged Out No longer eligi ble based on patient's age to complete this topic Pneumococcal vaccine <65 Aged Out No longer eligible based on patient's age to complete this topic Varicella Vaccines Discontinued Procedures Procedure Name Priority Date/Time Associated Diagnosis Comments SCREENING MAMMOGRAM BILATERAL W STORM Schedule Routine, Read Routine (OP Routine) 03/03/2024 9:12 AM CDT Family history of malignant neoplasm of breast HM PAP SMEAR WITH HPV Routine 10/11/2016 from Last 3 Months or Most Recently Relevant to Health Maintenance Results * Screening Mammogram Bilateral W Storm (03/03/2024 9:12 AM CDT) Anatomical Region Laterality Modality Breast Bilateral Mammography Narrative 03/04/2024 3:23 PM CDT Mammogram Technique: Bilateral Digital Breast Tomosynthesis, Bilateral C-view 2D Screening mammogram. Views obtained: bilateral craniocaudal and bilateral mediolateral oblique. Computer Aided Detection was performed. Mammogram Findings: The present examination has been compared to prior imaging studies performed on 09/29/2019, 11/06/2020, 03/25/2021, 02/14/2022 and 03/01/2023. The breasts are heterogeneously dense, which may obscure small masses. There is no suspicious abnormality in either breast. There are no significant changes from the prior study. Impression: There is no mammographic evidence of malignancy. Note patient is due in one month for follow breast MRI for probably benign findings seen on prior breast MRI from 10/01/2023. Please refer to that report for further details. Annual screening mammography is recommended. If supplemental screening is desired, breast MRI would be recommended in this patient with heterogeneously dense breasts. OVERALL FINAL ASSESSMENT: BI-RADS CATEGORY 1: Negative. Procedure Note Gabriela Chamorro MD - 03/04/2024 Mammogram Technique: Bilateral Digital Breast Tomosynthesis, Bilateral C-view 2D Screening mammogram. Views obtained: bilateral craniocaudal and bilateral mediolateral oblique. Computer Aided Detection was performed. Mammogram Findings: The present examination has been compared to prior imaging studies performed on 09/29/2019, 11/06/2020, 03/25/2021, 02/14/2022 and03/01/2023. The breasts are heterogeneously dense, which may obscure small masses. There is no suspicious abnormality in either breast. There are no significant changes from the prior study. Impression: There is no mammographic evidence of malignancy. Note patient is due in one month for follow breast MRI for probablybenign findings seen on prior breast MRI from 10/01/2023. Please refer to that report for further details. Annual screening mammography is recommended. If supplemental screeningis desired, breast MRI would be recommended in this patient with heterogeneously dense breasts. OVERALL FINAL ASSESSMENT: BI-RADS CATEGORY 1: Negative. us Lexis Hopkins NP IMG MAMMO PROCEDURES Final Result * PAP SMEAR WITH HPV (10/11/2016) Pap smear Normal Historical Provider HEALTH MAINTENANCE Final Result from Last 3 Months or Most Recently Relevant to Health Maintenance Insurance [employer] [place] [employer] [place] BLUE ACCESS CHOICE ME Advance Directives For more information, please contact: [phone] * Full Code (Latest Code Status on File) Date Activated Date Inactivated Comments 12/20/2022 10:23 AM 12/20/2022 7:01 PM * Full Code Date Activated Date Inactivated Comments 12/20/2022 10:23 AM 12/20/2022 10:23 AM * Full Code Date Activated Date Inactivated Comments 02/23/2021 5:41 PM 02/25/2021 5:05 PM Care Teams Director Of Collections And Archives Relationship Specialty Start Date End Date Hola Garcia MD [address] [place] [address] [place] [address] PCP - General Family Medicine 09/03/19 Cesario Tinsley MD [address] [place] [address] DR CH[address] B [address] [address] Software Intern Obstetrics and Gynecology 12/27/23
--- OUTSIDE RECORDS SUMMARY | 2025-03-03 08:20 | XMS_ITS | Referral Summary ---
Author Organization [facility] Medical Office Building B Address [address] [place] [address] Care Team Providers Care Mechanical Test Technician Name Role Phone Hola Garcia MD Primary Care Provider [phone] Cesario Tinsley MD Unavailable Encounters Date Type Department Care Team Description 01/23/2025 3:30 PM CDT Office Visit [facility] Minimally In[facility] Medical Office Building [address] [place] [phone] Uma Vieyra NP Obesity, Class II, BMI 35-39.9 (Primary Dx); Morbid obesity (HCC); Weight loss counseling, encounter for; Class 2 obesity due to excess calories without serious comorbidity with body mass index (BMI) of 38.0 to 38.9 in adult; H/O gastric sleeve; Intestinal malabsorption, unspecified type from Last 3 Months Allergies Active Allergy Reactions Criticality Noted Date [...] 07/01/2024 Assessment & Plan (07/01/2024 7:36 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): No contraindication to upcoming surgery on right [...] (12/14/2020): Added automatically from request for surgery [id number] Immunizations Immunization Administration Dates Next Due Influenza, Quadrivalent, Spl it, Preservative Free, Intramuscular 05/14/2019,06/11/2018 Influenza, Unspecified 07/01/2024(Deferr ed: Patient Refused),10/25/2023(Deferred: Patient Refused),05/13/2023(Deferred: Patient Refused),09/27/2022(Deferred: Patient Refused),05/13/2022(Deferred: Patient Refused),04/13/2022(Deferred: Patient Refused),06/02/2021(Deferred: Patient Refused),2020(Deferred: Patient Refused),05/17/2020(Deferred: Patient Refused) Pfizer SARS-CoV-2 Monovalent Vaccination (12+ Yrs) PURPLE 02/07/2021,01/17/2021 Tdap 11/07/2022,03/20/2018,09/12/2014 Social History Tobacco Use Types Packs/Day Years [...] on file Legal Sex Female 5:52 PM 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 KNITTER Gender Identity Female 01/26/2020 4:31 PM CDT Sexual Orientation Straight 01/26/2020 4: 31 PM CDT Last Filed Vital Signs Vital Sign Reading [...] 01/23/2025 3:00 PM CDT Plan of Treatment Not on file Procedures Procedure Name Priority Date/Time Associated Diagnosis [...] NP IMG MAMMO PROCEDURES Final Result * HM PAP SMEAR WITH HPV (10/11/2016) Pap smear Normal us Historical Provider HEALTH MAINTENANCE Final Result from Last 3 Months or Most Recently Relevant to Health Maintenance Insurance [employer] CHO[employer] [place] [employer] [place] BLUE ACCESS CHOICE ME Advance Directives For more information, please contact: [phone] * Full Code (Latest Code Status on File) Date Activated Date Inactivated Comments 12/20/2022 10:23 AM 12/20/2022 7:01 PM * Full Code Date Activated Date Inactivated Comments 12/20/2022 10:23 AM 12/20/2022 10:23 AM * Full Code Date Activated Date Inactivated Comments 02/23/2021 5:41 PM 02/25/2021 5:05 PM Care Teams Mechanical Test Technician Relationship Specialty Start Date End Date Hola Garcia MD [address] [place] [address] PCP - General Family Medicine 09/03/19 Cesario Tinsley MD [address] [place] [address] [address] B [address] [address] [employer]ba Business Development Officer Obstetrics and Gynecology 12/27/23
--- OUTSIDE RECORDS SUMMARY | 2025-03-03 08:20 | XMS_ITS | Data Portability ---
Author Organization [facility] Address [address] [place] [address] Assessment No assessment recorded. Plan of Treatment Reminders Order Date Submit Date Provider Last Modified By Organization Details Last Modified Time Details Appointments None record ed. Lab biopsy , endome trial 2023 024 [email or web address] [facility], [address] [facility], [place], [address], 4 09:48:19 pregna ncy test, urine 2023 024 [email or web address] In-Office Order, Internal Use Only DO Not Attach Compendium DO Not Attach Compendium, Do Not Delete/merge, [id number] 12:31:07 pregna ncy test, urine 2022 023 [email or web address] In-Office Order, Internal Use Only DO Not Attach Compendium DO Not Attach Compendium, Do Not Delete/merge, [id number] 17:03:13 biopsy , endome trial 2022 023 [email or web address] [facility], [address] [facility], [place], [address], 3 17:03:13 Referral None record ed. Procedures None record ed. Surgeries hyster oscopy , with endome trial ablati on (SURG) 2022 024 [facility], [address] [facility] , [place], [address], 16:51:30 Imaging None record ed. Medication Orders None record ed. Patient TargetsNo targets recorded. Patient Instructions Encounter Date Encounter Id Patient Instructions Last Modified By Organization Details Last Modified Time 11/26/2023 [id number] A healthy lifestyle: care instructions Not available 12/05/2023 21:29:42 01/09/2024 [id number] A healthy lifestyle: care instructions Not available 01/09/2024 18:04:00 02/11/2025 [id number] A healthy lifestyle: care instructions Not available 02/11/2025 14:44:17 Reason for Referral None Reported. Results Created Date Observation Date Name Description Value Unit Range Abnormal Flag Note LastModifiedBy Organization Detail LastModifiedTime 02/23/2002/22/2023 CBC WITH DIFFE RENTI AL/PL ATELE T WBC 7.7 K/uL 3.4-10 .8 Not Available [facility] [address] [place], [address], 02/23/2023 07:15:55 02/23/2002/22/2023 CBC WITH DIFFE RENTI AL/PL ATELE T RBC 4.3 M/uL 4.2-5. 4 Not Available [facility] [address] [place], [address], 02/23/2023 07:15:55 02/23/2002/22/2023 CBC WITH DIFFE RENTI AL/PL ATELE T hemoglobin 12.1 g/dL 11.5-1 5.5 Not Available [facility] [address] [place], [address], 02/23/2023 07:15:55 02/23/2002/22/2023 CBC WITH DIFFE RENTI AL/PL ATELE T hematocrit 38.0 % 36.0-4 8.0 Not Available [facility] [address] [place], [address], 02/23/2023 07:15:55 02/23/2002/22/2023 CBC WITH DIFFE RENTI AL/PL ATELE T MCV 89 fL 80-95 Not Available [facility] [address] [place], [address], 02/23/2023 07:15:55 02/23/2002/22/2023 CBC WITH DIFFE RENTI AL/PL ATELE T MCH 28 pg 27-32 Not Available [facility] [address] [place], [address], 02/23/2023 07:15:55 02/23/2002/22/2023 CBC WITH DIFFE RENTI AL/PL ATELE T MCHC 32 g/dL 32-36 Not Available [facility] [address] [place], [address], 02/23/2023 07:15:55 02/23/2002/22/2023 CBC WITH DIFFE RENTI AL/PL ATELE T RDW 13.2 % 11.5-1 4.5 Not Available [facility] [address] [place], [address], 02/23/2023 07:15:55 02/23/2002/22/2023 CBC WITH DIFFE RENTI AL/PL ATELE T platelets 353 K/uL 155-37 9 MPV 10.1 FL 8.9-1 2.7 N Not Available [facility] [address] [place], [address], 02/23/2023 07:15:55 02/23/2002/22/2023 CBC WITH DIFFE RENTI AL/PL ATELE T neutrophils 61.4 % 40.0-7 4.0 Not Available [facility] [address] [place], [address], 02/23/2023 07:15:55 02/23/2002/22/2023 CBC WITH DIFFE RENTI AL/PL ATELE T lymphs 23.1 % 14.0-4 6.0 Not Available [facility] [address] [place], [address], 02/23/2023 07:15:55 02/23/2002/22/2023 CBC WITH DIFFE RENTI AL/PL ATELE T monocytes 7.8 % 4.0-12 .0 Not Available [facility] [address] [place], [address], 02/23/2023 07:15:55 02/23/2002/22/2023 CBC WITH DIFFE RENTI AL/PL ATELE T eos 6 % 0-5 above high normal Not Available [facility] [address] [place], [address], 02/23/2023 07:15:55 02/23/2002/22/2023 CBC WITH DIFFE RENTI AL/PL ATELE T basos 0.8 % 0.0-1. 0 Not Available [facility] [address] [place], [address], 02/23/2023 07:15:55 02/23/20 23 02/22/2023 CBC WITH DIFFE RENTI AL/PL ATELE T neutrophils (absolute) 4.7 K/uL 1.4-7. 0 Not Available [facility] [address] [place], [address], 02/23/2023 07:15:55 02/23/20 23 02/22/2023 CBC WITH DIFFE RENTI AL/PL ATELE T lymphs (absolute) 1.8 K/uL 0.7-3. 1 Not Available [facility] [address] [place], [address], 02/23/2023 07:15:55 02/23/2002/22/2023 CBC WITH DIFFE RENTI AL/PL ATELE T monocytes(ab solute) 0.6 K/uL 0.1-0. 9 Not Available [facility] [address] [place], [address], 02/23/2023 07:15:55 02/23/20 23 02/22/2023 CBC WITH DIFFE RENTI AL/PL ATELE T eos (absolute) 0.4 K/uL 0.0-0. 4 Not Available [facility] [address] [place], [address], 02/23/2023 07:15:55 02/23/20 23 02/22/2023 CBC WITH DIFFE RENTI AL/PL ATELE T baso (absolute) 0.1 K/uL 0.0-0. 3 Not Available [facility] [address] [place], [address], 02/23/2023 07:15:55 02/23/20 23 02/22/2023 CBC WITH DIFFE RENTI AL/PL ATELE T immature granulocytes 1.2 % Not Available [facility] [address] [place], [address], 02/23/2023 07:15:55 02/23/20 23 02/22/2023 CBC WITH DIFFE RENTI AL/PL ATELE T immature grans (abs) 0.1 K/uL Not Available [facility] [address] [place], [address], 02/23/2023 07:15:55 02/23/20 23 02/22/2023 CBC WITH DIFFE RENTI AL/PL ATELE T NRBC 0 % Not Available [facility] [address] [place], [address], 02/23/2023 07:15:55 02/23/20 23 02/24/2023 IGP, APTIM A HPV, RFX 16/18 ,45 HPV aptima Negati ve negati ve This nucle ic acid ampli ficat ion test detec ts fourt een high- risk HPV types (16,1 8,31, 33,35 ,39,4 5,51, 52,56 ,58,5 9,66, 68) witho ut diffe renti ation . Not Available [facility] ([facility]) [address] [facility], [place], [address], 02/26/2023 11:15:03 02/23/20 23 02/26/2023 IGP, APTIM A HPV, RFX 16/18 ,45 diagnosis: Jb ALCANTARAT GODFREY FOR INTRA EPITH ELIAL ELIZABETHIO N OR VITA MASTERS . Not Available [facility] ([facility]) [address] [facility], [place], [address], 02/26/2023 11:15:03 02/23/20 23 02/26/2023 IGP, APTIM A HPV, RFX 16/18 ,45 specimen adequacy: Jb monreal Satis facto ry for evalu ation . Endoc ervic al and/o r squam ous metap lasti c cells (endo cervi evangelina compo nent) are prese nt. Not Available [facility] ([facility]) [address] [facility], [place], [address], 02/26/2023 11:15:03 02/23/20 23 02/26/2023 IGP, APTIM A HPV, RFX 16/18 ,45 clinician provided ICD10: Jb monreal Z87.4 2 Not Available [facility] ([facility]) [address] [facility], [place], [address], 02/26/2023 11:15:03 02/23/20 23 02/26/2023 IGP, APTIM A HPV, RFX 16/18 ,45 performed by: Lea Lewis (ASCP ) Not Available [facility] ([facility]) [address] [place], [address], 02/26/2023 11:15:03 02/23/20 23 02/26/2023 IGP, APTIM A HPV, RFX 16/18 ,45 . . Not Available [facility] ([facility]) [address] [place], [address], 02/26/2023 11:15:03 02/23/20 23 02/26/2023 IGP, APTIM A HPV, RFX 16/18 ,45 note: Commen t The Pap smear is a scree ronald test desig jamel to aid in the detec tion of gregoria ligna nt and malig nant condi tions of the uteri ne cervi x. It is not a diagn ostic proce dure and shoul d not be used as the sole means of detec ting cervi evangelina cance r. Both false -posi tive and false -nega tive repor ts do occur . Not Available [facility] ([facility]) [address] [place], [address], 02/26/2023 11:15:03 02/23/20 23 02/26/2023 IGP, APTIM A HPV, RFX 16/18 ,45 test methodology: Commen t This liqui d based ThinP rep(R ) pap test was scree jamel with the use of an image guide d systkaroline m. Not Available [facility] ([facility]) [address] [place], [address], 02/26/2023 11:15:03 02/23/20 23 02/26/2023 IGP, APTIM A HPV, RFX 16/18 ,45 HPV genotype reflex Commen t Crite elvis not met, HPV Genot ype not perfo rmed. Not Available [facility] ([facility]) [address] [place], [address], 02/26/2023 11:15:03 02/23/2002/23/2023 TSH+F REE T4 TSH 1.380 uIU/m L 0.450- 4.500 Not Available [facility] ([facility]) [address] [place], [address], 02/23/2023 11:17:23 07/02/23/2023 TSH+F REE T4 T4,free(dire ct) 1.13 NG/dL 0.82-1 .77 Not Available [facility] ([facility]) [address] [place], [address], 02/23/2023 11:17:23 03/13/20 23 03/21/2023 PATHO LOGY REPOR T . Commen t Mater ial submi tted: . endom etriu m - ENDOM ETRIA L BIOPS Y Not Available [facility] ([facility]) [address] [place], [address], 03/21/2023 11:17:03 03/13/2003/21/2023 PATHO LOGY REPOR T . Commgillian t Diagn osis: ENDOM ETRIA L BIOPS Y: MINUT E STRIP S OF NARDA Prieto SURFA CE ENDOM ETRIA L EPITH ELIUM WILLIAM NT FOR RELIA BLE ENDOM ETRIA L DIAGN OSIS. POLYP OID FRAGM ENTS OF NARDA Prieto ENDOC ERVIC AL TISSU E. COMME NT: CLINI EVANGELINA VICTOR MANUEL TAVAREZ N IS [facility] 03/21 0822 Local Not Available [facility] ([facility]) [address] [place], [address], 03/21/2023 11:17:03 03/13/2003/21/2023 PATHO LOGY REPOR T . Commen t Arlin barroso d: . Bay Beltran MD, Patho logis t Not Available [facility] ([facility]) [address] [facility], [place], [address], 03/21/2023 11:17:03 03/13/20 23 03/21/2023 PATHO LOGY REPOR T . Commen t Gross descr iptio n: . 1 Conta iner, forma abelardo-f illed , label ed with patie nt ident ifica tion. ENDOM ETRIA L BIOPS Y: MULTI PLE FRAGM ENT(S ) OF SOFT MATER IAL, BLOOD , AND MUCUS MEASU RING 3.0 X 2.0 X 0.1 CM IN AGGRE GATE. FILTE RED AND SUBMI TTED IN CASSE TTE(S ) A1. EL/D RA 03/15 0026 Local Not Available [facility] ([facility]) [address] [facility], [place], [address], 03/21/2023 11:17:03 03/13/20 23 03/21/2023 PATHO LOGY REPOR T . Commen t CPT . [id number] 1 Not Available [facility] ([facility]) [address] [facility], [place], [address], 03/21/2023 11:17:03 03/13/20 23 03/13/2023 pregn tanmay test, urine HCG negati ve Not Available In-Office Order Internal Use Only DO Not Attach Compendium DO Not Attach Compendium, Do Not Delete/merge, [id number] 03/13/2023 16:03:24 11/26/19 24 11/28/2023 PATHO LOGY REPOR T . Commen t Mater ial submi tted: . endom etriu m - ENDOM ETRIA L BIOPS Y Not Available [facility] ([facility]) [address] [facility], [place], [address], 11/28/2023 11:22:50 11/26/19 24 11/28/2023 PATHO LOGY REPOR T . Commen t Clini ian provi ded ICD-1 0: N93.9 Not Available [facility] ([facility]) [address] [facility], [place], [address], 11/28/2023 11:22:50 11/26/19 24 11/28/2023 PATHO LOGY REPOR T . Commen t Diagn osis: ENDOM ETRIA L BIOPS Y: SECRE TORY ENDOM ETRIU M. NO HYPER PLASI A OR CARCI NOMA. GXA 11/27 1015 Local Not Available [facility] ([facility]) [address] [facility], [place], [address], 11/28/2023 11:22:50 11/26/19 24 11/28/2023 PATHO LOGY REPOR T . Commen t Arlin barroso d: . Niels kelly MD, Patho logis t Not Available [facility] ([facility]) [address] [facility], [place], [address], 11/28/2023 11:22:50 11/26/19 24 11/28/2023 PATHO LOGY REPOR T . Commen t Gross descr iptio n: . 1 Conta iner, forma abelardo-f illed , label ed with patie nt ident ifica tion. ENDOM ETRIA L BIOPS Y: MULTI PLE FRAGM ENT(S ) OF SOFT MATER IAL, BLOOD , AND MUCUS MEASU RING 3.0 X 1.2 X 0.3 CM IN AGGRE GATE. FILTE RED AND SUBMI TTED IN CASSE TTE(S ) A1. MARIO/K YE 11/26 0801 Local Not Available [facility] ([facility]) [address] [facility], [place], [address], 11/28/2023 11:22:50 11/26/19 24 11/28/2023 PATHO LOGY REPOR T . Commen t Patho logis t provi ded ICD-1 0: N93.8 Not Available [facility] ([facility]) [address] [facility], [place], [address], 11/28/2023 11:22:50 11/26/19 24 11/28/2023 PATHO LOGY REPOR T . Commen t CPT . [id number] Not Available [facility] ([facility]) [address] [facility], [place], [address], 11/28/2023 11:22:50 11/26/19 24 11/26/2023 pregn tanmay test, urine HCG negati ve Not Available In-Office Order Internal Use Only DO Not Attach Compendium DO Not Attach Compendium, Do Not Delete/merge, [id number] 11/26/2023 16:38:25 03/01/20 23 03/01/2023 US, pelvi s, trans abdom inal + trans vagin al No observ ation record ed. [facility] [address] [facility] [place], [address], 03/12/2023 12:06:59 03/02/20 23 03/01/2023 MAMMO , scree ronald, tomos ynthe sis, bilat eral No observ ation record ed. [facility] Scheduling [address] [facility] [place], [address], 03/12/2023 11:59:24 Result Notes None recorded. Problems No Known Problems Procedures Surgical History Date Name Laterality Status Provider Name and Address Organization Details Recorded Time 02/02/20 25 Date of Last Pap Smear completed Melissa Kaur [facility] 02/11/2025 14:05:11 07/13/20 24 arthroplasty of joint of the thumb completed Melissa Kaur [facility] 02/11/2025 14:07:17 12/27/19 24 Endometrial Ablation completed Sondra Phan RN [facility] 12/27/2023 16:41:14 12/27/19 24 HYSTEROSCOPY, WITH ENDOMETRIAL ABLATION (SURG) completed Not Available [facility] 12/27/2023 16:51:30 11/26/19 24 Endometrial Biopsy completed Cesario Tinsley MD Attn: Accounting,[address] [facility], [place], [address], [facility] 12/05/2023 21:28:28 03/13/20 23 Endometrial Biopsy completed RAND Childs Attn: Accounting,[address] [facility], [place], [address], [facility] 03/13/2023 17:01:17 03/01/20 23 Most Recent Mammogram completed Genet Cazares [facility] 11/23/2023 08:53:53 12/21/19 23 colonoscopy completed IRINA Hernandez [facility] 02/22/2023 14:08:10 02/24/20 21 laparoscopic sleeve gastrectomy completed IRINA Hernandez [facility] 03/14/2021 12:06:04 04/01/20 10 Cholecystectomy completed Rocio Hill [facility] 07/07/2014 15:29:31 Imaging Results None recorded. Procedure Notes None recorded. Medical Equipment None Reported. Allergies No known drug allergies Medications Name Sig Start Date Stop Date Status Note LastModified by Organization Details LastModified Time cyclobenzap rine 10 mg tablet TAKE 1 TABLET BY MOUTH THREE TIMES A DAY NEEDED FOR MUSCLE SPASMS 02/11 completed Not Available Not Available Not Available amoxicillin 500 mg capsule TAKE ONE CAPSULE BY MOUTH TWICE DAILY FOR 10 DAYS 02/22 completed Not Available Not Available Not Available prednisone 10 mg tablet 03/17 completed Not Available Not Available Not Available albuterol sulfate 2.5 mg/3 mL (0.083 %) solution for nebulizatio n 02/22 completed Not Available Not Available Not Available loperamide 2 mg capsule PLEASE SEE ATTACHED FOR DETAILED DIRECTION S 02/11 completed Not Available Not Available Not Available polyethylen e glycol 3350 17 gram oral powder packet TAKE 1 PACKET (17 G TOTAL) BY MOUTH DAILY 02/22 completed Not Available Not Available Not Available azithromyci n 250 mg tablet TAKE 2 TABLETS BY MOUTH TODAY, THEN TAKE 1 TABLET DAILY FOR 4 DAYS 02/22 completed Not Available Not Available Not Available benzonatate 200 mg capsule 02/22 completed Not Available Not Available Not Available hydrocodone 5 mg-acetamin ophen 325 mg tablet 02/11 completed Not Available Not Available Not Available ondansetron HCl 4 mg tablet TAKE ONE TABLET BY MOUTH EVERY 6 HOURS NEEDED FOR NAUSEA/VO MITING 02/22 completed Not Available Not Available Not Available prednisone 20 mg tablet TAKE 1 TABLET BY MOUTH TWICE A DAY 02/11 completed Not Available Not Available Not Available phentermine 15 mg capsule TAKE 1 CAPSULE BY MOUTH EVERY DAY IN THE MORNING 02/22 completed Not Available Not Available Not Available promethazin e 6.25 mg-codeine 10 mg/5 mL syrup 02/22 completed Not Available Not Available Not Available acetaminoph en 300 mg-codeine 30 mg tablet TAKE 1 TAB BY MOUTH EVERY 6 HOURS NEEDED FOR PAIN TAKE DIRECTED WITH FOOD. 02/22 completed Not Available Not Available Not Available tramadol 50 mg tablet active Not Available Not Available No t Available amoxicillin 500 mg tablet TAKE 1 TABLET BY MOUTH EVERY 8 HOURS UNTIL GONE 02/11 completed Not Available Not Available Not Available amoxicillin 875 mg tablet TAKE ONE TABLET BY MOUTH EVERY 12 HOURS 11/25 completed Not Available Not Available Not Available amoxicillin 250 mg/5 mL oral suspension active Not Available Not Available N ot Available Mapap (acetaminop hen) 500 mg capsule TAKE 2 CAPSULES BY MOUTH 8 HOURS FOR 13 DOSES 02/22 completed Not Available Not Available Not Available cephalexin 500 mg capsule TAKE 1 CAPSULE EVERY 12 HOURS BY ORAL ROUTE FOR 10 DAYS. 02/22 completed Not Available Not Available Not Available ferrous sulfate 325 mg (65 mg iron) tablet TAKE 1 TABLET BY MOUTH EVERY DAY WITH BREAKFAST 02/22 completed Not Available Not Available Not Available neomycin-po lymyxin-dex ameth 3.5 mg/mL-10,00 0 unit/mL-0.1 % eye drops ADMINISTE R 1 DROP INTO THE RIGHT EYE 4 (FOUR) TIMES A DAY 02/22 completed Not Available Not Available Not Available prednisone 50 mg tablet TAKE 1 TABLET BY MOUTH DAILY FOR 5 DAYS 11/25 completed Not Available Not Available Not Available hyoscyamine 0.125 mg sublingual tablet TAKE ONE TABLET BY MOUTH EVERY 6 HOURS FOR 17 DOSES 02/22 completed Not Available Not Available Not Available docusate sodium 100 mg capsule TAKE 1 CAPSULE TWICE DAILY FOR CONSTIPAT ION MANAGEMEN T. CONSIDER TAKING WITH FOOD TO AVOID NAUSEA. 02/22 completed Not Available Not Available Not Available amoxicillin 250 mg capsule TAKE 1 CAPSULE BY MOUTH EVERY 8 HOURS UNTIL GONE 02/22 completed Not Available Not Available Not Available ergocalcife rol (vitamin D2) 1,250 mcg (50,000 unit) capsule TAKE 1 CAPSULE BY MOUTH ONE TIME PER WEEK 02/22 completed Not Available Not Available Not Available scopolamine 1 mg over [address] 1 PATCH ON THE SKIN ONCE FOR [address] BEHIND EAR AT 8PM THE NIGHT PRIOR TO SURGERY 02/22 completed Not Available Not Available Not Available methylpredn isolone 4 mg tablets in a dose pack TAKE DIRECTED ON PACKAGE 02/11 completed Not Available Not Available Not Available ondansetron 4 mg disintegrat ing tablet DISSOLVE 1 TABLET IN MOUTH EVERY 8 HOURS NEEDED FOR NAUSEA 02/11 completed Not Available Not Available Not Available cefdinir 300 mg capsule TAKE 1 CAPSULE BY MOUTH TWICE A DAY FOR 7 DAYS 02/22 completed Not Available Not Available Not Available diazepam 5 mg tablet TAKE 1 TABLET BY MOUTH BEFORE LEAVING HOUSE FOR MRI AND TAKE 1 TABLET AFTER ARRIVING 02/11 completed Not Available Not Available Not Available amoxicillin 875 mg-potassiu m clavulanate 125 mg tablet 03/17 completed Not Available Not Available Not Available Ventolin HFA 90 mcg/actuati on aerosol inhaler 02/22 completed Not Available Not Available Not Available oxycodone 5 mg tablet TAKE 1 TABLET (5 MG TOTAL) BY MOUTH EVERY 4 (FOUR) HOURS NEEDED FOR PAIN 02/22 completed Not Available Not Available Not Available azithromyci n 500 mg tablet TAKE 1 TABLET BY MOUTH EVERY DAY FOR 5 DAYS 11/25 completed Not Available Not Available Not Available Klor-Con M20 mEq tablet,exte nded release TAKE 1 TABLET BY MOUTH TWICE DAILY 11/25 completed Not Available Not Available Not Available Flovent HFA 110 mcg/actuati on aerosol inhaler 02/22 completed Not Available Not Available Not Available aprepitant 40 mg capsule TAKE 1 CAPSULE BY MOUTH ONCE FOR 1 DOSE TAKE AT 8PM ON THE NIGHT PRIOR TO SURGERY 02/22 completed Not Available Not Available Not Available Allergy Relief-D (cetirizine ) 5 mg-120 mg tablet,exte nded release active Not Available Not Available Not Available Contrave 8 mg-90 mg tablet,exte nded release TAKE 2 TABLETS BY MOUTH TWICE A DAY 02/22 completed Not Available Not Available Not Available Aftera 1.5 mg tablet Take 1 tablet by oral route as directed for 1 day. active Not Available Not Available No t Available Tab-A-Aundrea 400 mcg tablet TAKE 1 TABLET BY MOUTH TWICE A DAY active Not Available Not Available No t Available Zepbound 5 mg/0.5 mL subcutaneou s pen injector INJECT 0.5 ML (5 MG TOTAL) UNDER THE SKIN EVERY 7 DAYS active Not Available Not Available No t Available Zepbound 2.5 mg/0.5 mL subcutaneou s pen injector ADMINISTE R 2.5 MG UNDER THE SKIN EVERY 7 DAYS active Not Available Not Available No t Available Vitals Date Recorded Body height Body mass index (BMI) Body weight Systolic And Diastolic Provider Name and Address Organization Details Last Updated DateTime 11/26/2023 167.64 cm 33.5 kg/m2 82741.49 g 103/70 mm[Hg] Melissa Kaur [facility] 11/26/2023 16:45:15 Date Recorded Body height Body mass index (BMI) Body weight Systolic And Diastolic Provider Name and Address Organization Details Last Updated DateTime 01/09/2024 167.64 cm 33.7 kg/m2 51871.81 g 95/64 mm[Hg] Melissa Kaur [facility] 01/09/2024 15:17:24 Date Recorded Body height Body mass index (BMI) Body weight Systolic And Diastolic Provider Name and Address Organization Details Last Updated DateTime 02/11/2025 167.64 cm 32.9 kg/m2 82632.13 g 111/80 mm[Hg] Melissa Kaur [facility] 02/11/2025 14:00:27 Date Recorded Body height Body mass index (BMI) Body weight Systolic And Diastolic Provider Name and Address Organization Details Last Updated DateTime 03/13/2023 167.64 cm 34.2 kg/m2 22532.58 g 112/74 mm[Hg] Christiane Moonmons [facility] 03/13/2023 16:02:36 Date Recorded Body height Body mass index (BMI) Body weight Systolic And Diastolic Provider Name and Address Organization Details Last Updated DateTime 04/17/2023 167.64 cm 34.3 kg/m2 62489.02 g 99/66 mm[Hg] Melissa Kaur [facility] 04/17/2023 15:31:32 Social History Question Answer Notes LastModified by Organizat ion Details LastModified Time Tobacco Smoking Status Never Smoker Not Available [facility] 06/15/2020 03:43:22 Do You Have An Advance Directive? No Information not available 04/17/2023 Is Blood Transfusion Acceptable In An Emergency? Yes Information not available 04/17/2023 What Is Your Level Of Caffeine Consumption? Occasional [id number] Information not available 06/15/2020 In The 14 Days Before Symptom Onset, Have You Had Close Contact With A Laboratory-confir med COVID-19 While That Case Was Ill? No Information not available 04/17/2023 In The 14 Days Before Symptom Onset, Have You Had Close Contact With A Person Who Is Under Investigation For COVID-19 While That Person Was Ill? No Information not available 04/17/2023 Have You Been To An Area Known To Be High Risk For COVID-19? No Information not available 04/17/2023 What Type Of Diet Are You Following? SPECIFIC Information not available 04/17/2023 What Is The Highest Grade Or Level Of School You Have Completed Or The Highest Degree You Have Received? [id number] Information not available 04/17/2023 Have There Been Any Changes To Your Family Or Social Situation? No Information no t available 04/17/2023 Live Alone Or With Others? With Others [email or web address] Information not available 10/21/2014 What Was The Date Of Your Most Recent Tobacco Screening? 02/11/2025 Information not available 02/11/2025 How Many Children Do You Have? 3 [id number] Information not available 06/15/2020 Performs Monthly Self-breast Exam? Yes [email or web address] Information no t available 11/09/2015 Do You Have Any Pets? Yes X 2 Cats & X 1 Dog Information not available 04/17/2023 Do You Use Protection During Sex? No Information not available 04/17/2023 What Is Your Relationship Status? [id number] Information not available 06/15/2020 Do You Use Your Seat Belt Or Car Seat Routinely? Yes Information not available 04/17/2023 Are You Sexually Active? Yes Information not available 04/17/2023 Do You Have Smoke And Carbon Monoxide Detectors In Your Home? Yes Information not available 04/17/2023 Are You Passively Exposed To Smoke? No Information no t available 04/17/2023 How Much Tobacco Do You Smoke? No [id number] Information not available 06/15/2020 Do You Use Sunscreen Routinely? Yes Information not available 04/17/2023 Has Tobacco Cessation Counseling Been Provided? Yes Information not available 02/22/2023 On What Date Was Tobacco Cessation Counseling Provided? 02/11/2025 Information not available 02/11/2025 Sex: Female Functional Status Question Answer Note LastModified by Organizat ion Details LastModified Time Do you use any illicit or recreational drugs? No Information not available 02/22/2023 What is your level of alcohol consumption? None [id number] Information not available 06/15/2020 Do you or have you ever used smokeless tobacco? Never used smokeless tobacco [id number] Information not available 06/15/2020 Are you currently employed? 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 Never used electronic cigarettes [id number] Information not available 06/15/2020 What is your exercise level? Moderate Information not available 04/17/2023 Mental Status Question Answer Note LastModified by Organization D etails LastModified Time Do you feel stressed (tense, restless, nervous, or anxious, or unable to sleep at night)? [id number] Information not available 04/17/2023 Family History Relationship Description Onset Age of this Age Resolved Age Notes LastModified by Organization Details LastModified Time Mother Malignant tumor of breast 40 Second time having it. on 11-17-16 . mother diagno sised age 40 [email or web address] Not available 09/05/2018 09:25:12 Mother Multiple myeloma 54 [email or web address] Not available 2016 10:54:54 Paternal Grandmother Diabetes mellitus [email or web address] Not available 12/2017 11:00:09 Medical History Condition Response Coronary Artery Disease N Kidney Cyst N Blood Diseases N Hyperthyroidism N Blood disorders N Blood Transfusion N MRSA N Emphysema N Depression N COPD N Blood Clots N Pneumonia N Premature N Peripheral Arterial Disease N Edema N TIA N Headaches/Migraines N Anxiety Disorder N Obesity N Polyps N Infertility N Acid Reflux (GERD) N Hematuria N Stroke N Neck Injury N Polio N Hospital Admission other than N Neurologic Disorder N Other Sleep Disorders N Rheumatoid Arthritis N Fibromyalgia N Abdominal Aortic Aneurysm Repair N Kidney Disease N Heart Conditions N Heart Disease/Heart Problems N Hospitalizations N Brain Tumors N Acne N Skin Problems N Eating Disorder N Meningitis N Constipation N Tuberculosis N Cerebral Palsy N Myocardial Infarction N Asthma N Substance Abuse N Peripheral Vascular Disease N Vertigo N Sleep Disorder N Cirrhosis N Pulmonary Embolism N Chicken Pox N Hematologic Disease N Flomax Use Past or Present N Anxiety/Depression Y Thyroid Disease N Colon Cancer N Lung Disease N Glaucoma N Developmental or Behavioral Disorders N Bipolar N Pacemaker N Diverticulitis/Diverticulosis N Orthopedic Problems N Anesthesia Complications N Orthotics N Head Injury/Concussion N Congenital Anomalies N Castaneda Bite N Chronic Kidney Disease N Endometriosis N Liver Disease N Schizophrenia N Dialysis N Speech Delay N Chronic Obstructive Pulmonary Disease N Parkinson's Disease N Thyroid Problems N GI Problems N Developmental Delay N Anemia N Multiple Sclerosis N Immune System Disorder N Colon Polyps N Heart Attack (OR) N Diabetes N Cardiomyopathy N Blood Transfusions N Heart Problems/Murmur N Eye Trauma N Congestive Heart Failure (CHF) N Valvular Heart Disease N Hyperlipidemia N Double Vision N Abuse/Domestic Violence N Hepatitis B N Lupus N Epilepsy/Seizures N Reflux/GERD N Aneurysm N Heart Disease N Bronchitis N Pre-Eclampsia N Hypertension N Heart Failure N Other N Gout N High Blood Pressure N Atrial Fibrillation N Kidney Stones N Head Trauma/Injury N Congenital Heart Disease N Spine Problems N Gastrointestinal Disease N Lung Mass N Sinusitis N Obstructive Sleep Apnea N Muscle, Joint, or Bone Problems N Autoimmune disease N Vision or Eye Problems N Arthritis N Blood Clot N Cancer N Seasonal allergies N Leg or Foot Ulcers N Raynaud's Disease N Aortic Aneurysm N Arrhythmia N Headaches N Heart Problems N Ambloypia N Ear or Hearing Problems N Hyperparathyroidism N Migraines N Artificial Joints N Kidney or Bladder Problems N NSAID Use N Encephalitis N PTSD N Ulcers N Prostate Hypertrophy N Bleeding Disorder N AIDS/HIV N Urinary Tract Infection N Back Problems N Allergies N Atrial Flutter N GERD/Reflux N Hepatitis N Autism Spectrum Disorder (ASD) N Breast Cancer N Hernia N Hypothyroidism N Breast Problem N Genitourinary Disease N Deep Vein Thrombosis N Varicose Veins N Cystic Fibrosis N Hearing Loss N Developmental Problems N Carotid Disease N Vitamin D Deficiency N ADHD N Bladder or Kidney Problems N High Cholesterol N [place]iers N Valvular Abnormalities N Psychiatric/Mental Health Condition N Organ Transplant N Foot Deformity N Allergies/Hayfever N Dyslipidemia N Hyponatremia N Diabetic Eye Disease N Osteoporosis/Osteopenia N Back Pain N Proteinuria N Mental Illness N Neurological Problems N Ovarian Cancer N Bedwetting N Seizures/Epilepsy N Kidney Failure N Ocular trauma N Diverticulitis N Dementia N Sleep Apnea N Mental Problems N Warfarin Management N Osteoporosis N Gynecological History Statement/Question Response Abnormal Pap Yes Flow Light On BCP's at Conception? N STIs/STDs N HPV Vaccine N Duration of Flow (days) 5 Most Recent Mammogram 03/01/2023 Age at Menarche 13 Current Control Method Partner Vas ectomy Age at First Child 24 Frequency of Cycle (Q days) 28 Sexually Active? Y Menses Monthly Y Date of Last Pap Smear 02/01/2025 Sexual Problems? N LMP Definite Obstetrics History GPAL:G 3 P 3 0 0 3 Type Value Full Term 3 Living 3 Total 3 Immunizations Vaccine Type Date Status Note Provider Nam e and Address Organization Details Recorded Time Tdap 09/12/2014 completed Not Available [facility] 02/11/2025 13:51:56 Tdap 03/20/2018 completed Not Available [facility] 02/11/2025 13:51:56 Influenza, split virus, quadrivalent, PF 06/11/2018 completed Not Available [facility] 5 13:51:56 Influenza, split virus, quadrivalent, PF 05/14/2019 completed Not Available [facility] 13:51:56 COVID-19, mRNA, LNP-S, PF, 30 mcg/0.3 mL dose 01/17/2021 completed Not Available [facility] 13:51:56 Tdap 11/07/2022 completed Not Available [facility] 02/11/2025 13:51:56 Past Encounters Encounter ID Performer Location Encounter Start Date Encounter Closed Date Diagnosis/Indication Diagnosis SNOMED-CT Code Diagnosis ICD10 Code Diagnosis Note [id number] MD Preeti Scales ([facility]) [address] [facility] [place] [address] 07/13/2014 17:32:44 07/14/2014 11:50:04 Normal [id number] MD Preeti Scales ([facility]) [address] [facility] [place] [address] 07/27/2014 14:56:28 07/28/2014 09:26:39 Normal [id number] MD Preeti Scales ([facility]) [address] [place] [address] 08/10/2014 11:01:26 08/10/2014 15:48:32 Normal [id number] MD Preeti Scales ([facility]) [address] [place] [address] 08/24/2014 12:01:42 08/24/2014 15:07:33 Normal [id number] MD Preeti Scales ([facility]) [address] [place] [address] 09/01/2014 14:24:05 09/01/2014 15:43:52 Normal [id number] MD Preeti Scales ([facility]) [address] [facility] [place] [address] 09/08/2014 14:42:34 09/08/2014 17:56:31 Normal [id number] MD Preeti Scales Women[employer] ([facility]) [address] [facility] [place] [address] 10/21/2014 15:26:45 10/23/2014 11:08:43 care [id number] Gynecologi c examination [id number] Vaginal discharge [id number] MD Preeti Scales ([facility]) [address] [facility] [place] [address] 11/09/2015 10:39:43 11/11/2015 16:30:44 Gynecologic examination [id number] Z01.419 Vaginal discharge 500225 006 N89.8 [id number] Lien Gomez [facility] Preeti Mitchell ([facility]) [address] [facility] [place] [address] 10/30/2016 10:31:43 10/30/2016 15:09:14 Gynecologic examination 69639996 Z01.559 [id number] MD Preeti Tyler 14 OB [address] [facility] [place] [address] 01/15/2018 10:43:17 01/24/2018 16:27:38 Body mass index 40+ - severely obese 450801684 Z68.43 Discussed obesity management options. Patient not interested in bariatric or dietitian referral at this time. Patient reports she sees PCP for routine blood work. Follow up as needed. Screening for malignant neoplasm of breast 112334014 Z12.39 clinical breast exam completed. Educated on the importance of SBE and awareness. Family andrew nning surveillance 379208348 Z30.09 Patient notified that depo can actually cause weight gain. Discussed contracept godfrey options. Patient not interested in control options at this time other than condoms. [id number] MD Preeti Tyler 14 OB [address] [facility] [place] [address] 09/05/2018 08:53:00 09/05/2018 12:48:26 Family history of malignant neoplasm of breast in first degree relative 147149528 Z80.3 Pt requesting mammogram. PT notified insurance may not cover since she is BRCA negative. PT still wanting mammogram order. Order given to pt. Pt educated on importance of self breast exams and annual clinical breast exam. Pt notified to call office with any breast changes. Pt reports she had already seen genetic counselor. Pt notified to call office if she has issues getting her mammogram scheduled. Body mass index 40+ - severely obese 698543573 Z68.43 Pt report she working her PCP Dr. Greer Mae for her weight loss and monitoring of obesity. Pt notified to continue to follow up with PCP. Routine gy necologic examination done [id number] 9101 Z01.419 -Educated on the importance of SBE and awareness. -Discussed the importance of cervical cancer screenings . Pt had normal pap 10/30/16 -Educated osteoporos is prevention including calcium rich foods, weight bearing exercise. -Discussed the importance of exercise. -Nutrition discussed and the importance of a diet rich in fruits, vegetable, whole grains, and lean proteins. -Counseled regarding prevention of STD's and screening options, condom use and prevention . -Advised avoidance of tobacco, alcohol, and drugs. -Discussed sun safety and the importance of sunscreen. [id number] MD Preeti Ahuja 14 OB [address] [facility] [address] [address] 03/17/2020 08:40:38 03/18/2020 12:50:12 Gynecologic examination 75605097 Z01.419 -Educated on the importance of SBE and awareness. -Discussed the importance of cervical cancer screenings -Educated osteoporos is prevention including calcium rich foods, weight bearing exercise. -Discussed the importance of exercise. -Nutrition discussed and the importance of a diet rich in fruits, vegetable, whole grains, and lean proteins. -Counseled regarding prevention of STD's and screening options, condom use and prevention . -Advised avoidance of tobacco, alcohol, and drugs. -Discussed sun safety and the importance of sunscreen. Family his tory of malignant neoplasm of breast in first degree relative 961623367 Z80.3 BRCA testing negative. Pt educated on importance of self breast exams and annual clinical breast exam. Pt notified to call office with any breast changes. Pt reports negative mammogram in the last year records requested. Body mass index 40+ - severely obese 561151502 Z68.43 Pt report she working her PCP for her weight loss and monitoring of obesity. Pt notified to continue to follow up with PCP. [id number] MD Preeti Ahuja 14 OB [address] [facility] [place] [address] 03/14/2021 11:49:47 03/15/2021 07:01:31 Mass of right breast 8485222839 1115653 N63.10 Pt declined UPT. Pt treatment of antibiotic . Pt educated on treatment. Right breast US and bilateral diagnostic mammogram ordered for patient to complete. Follow up within 10 days and call office if issues occur. [id number] MD Preeti Ahuja [address] [place] [address] [place] [address] 03/22/2021 10:55:45 03/23/2021 06:54:38 Gynecologic examination 51019256 Z01.419 -Educated on the importance of SBE and awareness. -Discussed the importance of cervical cancer screenings . Pt negative 03/17/2020-E ducated osteoporos is prevention including calcium rich foods, weight bearing exercise.- Discussed the importance of exercise.- Nutrition discussed and the importance of a diet rich in fruits, vegetable, whole grains, and lean proteins.- Counseled regarding prevention of STD's and screening options, condom use and prevention .-Advised avoidance of tobacco, alcohol, and drugs. Body mass index 40+ - severely obese 503855807 Z68.43 Pt report she working her PCP and bariatric specialist for her weight loss and monitoring of obesity. Pt notified to continue to follow up with PCP and bariatric specialist . Mass of right breast 547 7590910 2044544 N63.10 Appears to be resolved pt advised to continue with testing and follow up based on results. Pt notified to call office if issues occur. [id number] MD Preeti Ahuja [address] [place] [address] [place] [address] 02/22/2023 13:48:30 02/26/2023 10:14:36 Routine gynecologic examination done [id number] 9101 Z01.419 -Educated on the importance of SBE and awareness. -Discussed the importance of cervical cancer screenings . Pt had normal pap 10/30/16 -Educated osteoporos is prevention including calcium rich foods, weight bearing exercise. -Discussed the importance of exercise. -Nutrition discussed and the importance of a diet rich in fruits, vegetable, whole grains, and lean proteins. -Counseled regarding prevention of STD's and screening options, condom use and prevention . -Advised avoidance of tobacco, alcohol, and drugs. -Discussed sun safety and the importance of sunscreen. Family his tory of breast cancer 288949614 Z80.3 Pt wants to see breast surgeon related to dense breast and her family history. Screening mammogram ordered. History of abnormal cervical Papanicolaou smear 859568545 Z87.42 Menorrhagia 459725336 N9 2.0 Labs ordered and pelvic US ordered. Discussed management options. Pt not interested in hormonal control. Pt considerin g endometria l ablation. [id number] MD Preeti Ahuja [address] [place] [address] 03/13/2023 15:47:55 03/15/2023 10:40:24 Abnormal uterine bleeding 5269713279 9100 N93.9 limited EMB Completed. Discussed management options of heavy menstrual bleeding. Pt still only interested in uterine ablation. Pt opts to schedule with Dr. Tinsley to discuss further. [id number] MD Preeti Ahuja [address] [place] [address] 04/17/2023 15:22:22 04/18/2023 10:31:56 Abnormal uterine bleeding 3501476433 9100 N93.9 --heavy vaginal bleeding [id number] MD Preeti Ahuja [address] [place] [address] 11/26/2023 16:27:04 12/06/2023 18:05:54 Abnormal uterine bleeding 8848899068 9100 N93.9 --heavy vaginal bleeding Depression screening 171 052802 Z13.31 PHQ9=2 Obesity 707875378 E66.9 [id number] MD Preeti Ahuja [address] [place] [address] 01/09/2024 15:08:08 01/11/2024 08:27:54 Postoperative visit 324267840 Z48.89 --Pt healing well Obesity 540281246 E66.9 [id number] MD Preeti Ahuja 14 OB [address] [place] [address] 02/11/2025 13:35:52 02/12/2025 11:31:49 Gynecologic examination 96672853 Z01.419 --CBE and pelvic exam performed Obese class I 5268670250 95585 E66.811 Depression screening negative 9654206162 15773 Z13.31 PHQ9=4 Health Concerns Section Related Observation LastModified by Organization Detai ls LastModified Time None Recorded Concern Status LastModified by Organization Details LastModified Time None Recorded Advance Directives Directive N: Payers Insurance Date Sequence Insurance Name Policy Number Policy Hay Covered Member ID Hay Member ID Guarantor Name 02/11/2025 1 [facility] (MEDICAID HMO) Raquel Clinton [id number] berg 02/10/2025 1 [place] [id number] Yahir Clinton [id number] 02/11/2025 2 [place] [facility] berg [id number] 02/11/2025 1 [facility] (MEDICAID HMO) [id number] berg [id number] 02/11/2025 2 [facility] (MEDICAID HMO) [id number] berg [id number] 11/04/2015 1 [place] [id number] Yahir Clinton [id number] 02/11/2025 2 [place] [facility] berg [id number] 02/11/2025 2 [facility] DOS PRIOR TO 2021 (MEDICAID REPLACEMENT - HMO) [id number] 02/11/2025 2 [facility] (MEDICAID HMO) [id number] berg [id number] 02/11/2025 1 [facility] (MEDICAID HMO) [id number] berg [id number] Notes Date Note Type Note Provider Name and Address Organization Details Recorded Time 03/13/2023 text/html Pt is here for EMB. Pt denies any concerns. RAND Childs Attn: Accounting[address] [place], [address], [place] [facility] 03/13/2023 17:02:59 04/17/2023 text/html Patient presents as a referral secondary to heavy vaginal bleeding. She states that she desires a uterine ablation for treatment and does not desire any intervention at this time prior to surgery being performed. Cesario Tinsley MD Attn: Accounting, [address] [place], [address], [facility] - [facility] 04/17/2023 15:50:59 11/26/2023 text/html Patient presents for EMB secondary to abnormal uterine bleeding in preparation for hysteroscopy and endometrial ablation. She denies any other complaints. Cesario Tinsley MD Attn: Accounting, [address] [place], [address], [facility] - [facility] 12/05/2023 21:30:19 01/09/2024 text/html Post-OpReported bypatient.Onset/Ti lance:date of surgery: (12/27/23) Quality:procedure: (HTA ablation) Context:reason for procedure: (Abnormal uterine bleeding) Associated Symptoms:incision healing well; no fatigue; normal appetite; normal bowel function; no constipation; no nausea; no emesis; pain improving; no pain; no fever; no bleeding; no lower extremity edema/pain; no dysuria/urinary symptoms Patient presents for post-op follow up visit. She denies any complaints. Cesario Tinsley MD Attn: Accounting, [address] [place], [address], [facility] - [facility] 01/09/2024 18:04:18 02/11/2025 text/html Annual GYNReport ed bypatient.History: no gynecologic complaints Menstrual cycle:Irregular cycle intervals Urinary symptoms:No hematuria; No incontinence Vulva:No genital lesion Vagina:Normal vaginal discharge Breast:No breast pain; No breast lump; No nipple discharge Current Contraception:Part ner had vasectomy Sexual complaints:No sexual complaints; No pain during intercourse; Normal libido Menopausal Symptoms:No menopausal symptoms; Normal vaginal lubrication Psychological symptoms:No depression; No anxiety; No PMDD Cesario Tinsley MD Attn: Accounting, [address] [place], [address], [place] [facility] 02/11/2025 14:45:02 OBGyn Episode Ob Episode Information Episode Created Date Number of Fetuses Patient Bloodtype Patient rh Status Prepregnancy Weight lbs Domestic Partner Domestic Partner Phone Father Name Parimutuel Ticket Seller Status 07/07/20 14 1 CLOSED Fetus Data First Name Last Name Admitted to NICU Weight (g) Sex Living Outcome Pediatric Complications Fetus ID Race Codes Race Delivery Type 8110.22 496 F Full Term 1501 Vaginal Rich Calculation Initial Rich Date Initial Exam Date Initial Exam Provider Initial Ultrasound Date Last Menstrual Period Date Ultra Sound Weeks Gestation 0 Eighteen To Twenty Week Rich Update Ultra Sound Date Fundal Height At Umbil Quickening Date Ultra Sound Latest Weeks Gestation Final Rich Confirmed By Final Rich Confirmed Date Final Rich Date Ultra Sound Latest Days Gestation 0 0 Menstrual History Last Menstrual Date Menses Monthly On Bcp Conception Prior Menses Frequency Hcg Plus Date Menarche Onset Age Delivery Information Delivery Date Delivery Type Labor Anesthesia Weeks Gestation Incision Type Labor Labor Length Hrs Delivered By Post Complications Tubal Sterilization Discharge Date Comments 0 39 false 2 Discharge Information Feeding Method Contraceptive Method Maternal HG B and HCT Levels Ob Episode Information Episode Created Date Number of Fetuses Patient Bloodtype Patient rh Status Prepregnancy Weight lbs Domestic Partner Domestic Partner Phone Father Name Parimutuel Ticket Seller Status 07/07/20 14 1 CLOSED Fetus Data First Name Last Name Admitted to NICU Weight (g) Sex Living Outcome Pediatric Complications Fetus ID Race Codes Race Delivery Type 3488.12 248 F Full Term 1502 Vaginal Rich Calculation Initial Rich Date Initial Exam Date Initial Exam Provider Initial Ultrasound Date Last Menstrual Period Date Ultra Sound Weeks Gestation 0 Eighteen To Twenty Week Rich Update Ultra Sound Date Fundal Height At Umbil Quickening Date Ultra Sound Latest Weeks Gestation Final Rich Confirmed By Final Rich Confirmed Date Final Rich Date Ultra Sound Latest Days Gestation 0 0 Menstrual History Last Menstrual Date Menses Monthly On Bcp Conception Prior Menses Frequency Hcg Plus Date Menarche Onset Age Delivery Information Delivery Date Delivery Type Labor Anesthesia Weeks Gestation Incision Type Labor Labor Length Hrs Delivered By Post Complications Tubal Sterilization Discharge Date Comments 0 40 false 11 Discharge Information Feeding Method Contraceptive Method Maternal HG B and HCT Levels
== END 2025-03-03 08:18 | disposition home or self-care (01) ==
LOC: ANHBWCAUD 08:17
PROVIDERS: PCP Family Medicine; Visit Provider Otolaryngology
DX: H92.02 Otalgia, left ear (principal); H91.93 Unspecified hearing loss, bilateral; Z87.898 Personal history of other specified conditions
CPT/HCPCS: 92557; 92567